=== PATIENT | female | born 1975 | race Caucasian/White ===

== ENCOUNTER 2021-05-16 18:19 | Inpatient (IN) | payer OTHER ==
[~2021-05-16] VITALS: Ht 165.1 cm; Wt 76.3 kg
--- NOTE | ~2021-05-16 | PROC ---
[address] [address] PROCEDURE REPORT Name: ERASMO MENDIOLA Room: [address] IN ..#: [id number] Admission: 05/16/21 Attend Phys: Ernesto Adames MD Discharge: Date of : 71 Report #: [id number] THIS REPORT FOR: cc: FAM - No family physician/PCP FAM - No family physician/PCP [facility],Medical Records Staff ~ For GI report, please see the Provation report in Perceptive 7 content. By: 0656Medical Records Staff TATI /DILCIA
--- NOTE | ~2021-05-16 | CON ---
[address] [address] CONSULTATION Name: ERASMO MENDIOLA Room: [address] IN .R.#: [id number] Admission: 05/16/21 Attend Phys: Ernesto Adames MD Discharge: Date of : 71 Report #: [id number] THIS REPORT FOR: cc: SUMAN - Bina family physician/PCP SUMAN - No family physician/PCP Mariella Foley MD ~ DATE OF CONSULTATION: 05/18/2021 REASON FOR CONSULT: Increased abdominal girth and abdominal distention. HISTORY OF PRESENT ILLNESS: This is a 45-year-old female who was admitted to hospital with increased abdominal distention and pain, which has been going on for the past week. The patient also had noticed that her eyes were turning yellow and urine turning dark. She admits that she has drunk alcohol for many, many years. She usually drinks vodka and water. She reports that she has not drunk for a week except one glass of vodka, last Wednesday. She denies any tremors, seizure or signs of withdrawal. The patient's affect is restricted, and she appears depressed. PAST MEDICAL HISTORY: Significant for alcoholism. The patient otherwise denies any major illness or chronic medical condition. ALLERGIES: No known drug allergy. MEDICATIONS: Please refer to MAR. PHYSICAL EXAMINATION: VITAL SIGNS: Reveals blood pressure of 113/71, respirations 18, pulse 104, temperature is 98.1. LUNGS: Clear. CARDIOVASCULAR: Regular. ABDOMEN: Distended, mildly tender to palpation. Bowel sounds are positive. NEUROLOGIC: The patient is alert and oriented x3. SKIN: There is jaundice. Conjunctivae are yellow. LABORATORY DATA: Reveal sodium of 129, potassium 3.8, BUN is 2, creatinine 0.6, glucose is 173, lipase is 200, AST 364, alkaline phosphatase is 249, ALT is 104. Magnesium is 2.8, total bilirubin 6.1 with calcium of 7.1. Ammonia is 17. Lactic acid is 3.5. WBC is 4.8 with hemoglobin of 9.8 and platelets of 67. IMAGING: CT of abdomen and pelvis was obtained. This is significant for upper abdominal ascites. The spleen is enlarged to 14 cm. Liver has mixed attenuation. The right colon and transverse colon shows slight [place] [address] CONSULTATION Name: ERASMO MENDIOLA Room: [address] IN [facility]#: [id number] Admission: 05/16/21 Attend Phys: Ernesto Adames MD Discharge: Date of : 71 Report #: [id number] ASSESSMENT AND PLAN: The patient with abdominal distention due to ascites, which is secondary to portal hypertension and alcoholic liver disease. I will schedule the patient for both therapeutic and diagnostic paracentesis. We will also consider EGD to rule out gastroesophageal varices. In reference to thickened colon per CT, this most probably is due to edematous colon. I spoke to the patient and her for 45 minutes and educated them on alcoholic liver disease, diagnosis, prognosis and management. I will make further recommendation based on above results. By: [id number] Foley MD /nt
[2021-05-16 18:27] VITALS: BP 141/86
[2021-05-16 20:06] LABS: ABSOLUTE LYMPHOCYTES 0.5 thou/uL (0.8-5.3); ABSOLUTE MONOCYTES 0.6 thou/uL (0.0-1.2); ABSOLUTE NEUTROPHILS 5.5 thou/uL (1.6-8.1); BASOPHILS 0.5 %; EOSINOPHILS 0.2 %; HEMATOCRIT 30.6 % (37.0-47.0); HEMOGLOBIN 10.4 gm/dL (12.0-15.0); LYMPHOCYTES 7.8 %; MCHC 33.9 g/dL (28.0-37.0); MCV 103.1 fL (80.0-100.0); MONOCYTES 9.3 %; MPV 8.2 fl. (7.2-11.1); NUCLEATED RBCS 0 /100WBC; PLATELET COUNT* 74 thou/uL (150-400); POLYS 82.2 %; RBC 2.97 mil/uL (4.20-5.00); RDW-CV 15.3 % (10.5-14.5); WBC 6.6 thou/uL (4.0-11.0)
[2021-05-16 20:14] LABS: INR 1.7; PROTIME 17.2 Seconds (9.20-11.50)
[2021-05-16 20:49] LABS: URINE GLUCOSE-RANDOM TRACE (Negative); URINE KETONES TRACE (Negative)
[2021-05-16 20:54] LABS: URINE CLARITY CLOUDY; URINE COLOR ORANGE
[2021-05-16 20:55] LABS: URINE SPECIFIC GRAVITY 1.015 (1.005-1.030)
[2021-05-16 20:57] LABS: BACTERIA-REFLEX >30 Many /HPF (None Seen); CASTS None Seen /LPF (None Seen); CRYSTALS None Seen /LPF (None Seen); SQUAMOUS >10 Many /LPF (0-3); URINE RBC 0-2 Rare /HPF (0-2); URINE WBC-REFLEX 6-15 Few /HPF (0-5)
[2021-05-16 21:29] LABS: CALCIUM 8.3 mg/dL (8.5-10.1); CREATININE 0.7 mg/dL (0.6-1.3); MAGNESIUM 1.6 mg/dL (1.8-2.4); TOTAL PROTEIN 7.1 g/dL (6.4-8.2)
[2021-05-16 21:34] LABS: POTASSIUM 2.4 mmol/L (3.5-5.1)
[2021-05-17 03:02] VITALS: BP 110/68
[2021-05-17 08:00] VITALS: BP 106/61
[2021-05-17 09:28] LABS: ABSOLUTE LYMPHOCYTES 0.5 thou/uL (0.8-5.3); ABSOLUTE MONOCYTES 0.5 thou/uL (0.0-1.2); ABSOLUTE NEUTROPHILS 3.7 thou/uL (1.6-8.1); BASOPHILS 0.4 %; HEMATOCRIT 29.3 % (37.0-47.0); HEMOGLOBIN 9.8 gm/dL (12.0-15.0); LYMPHOCYTES 10.4 %; MCH 34.9 pg (26.0-34.0); MCHC 33.4 g/dL (28.0-37.0); MCV 104.5 fL (80.0-100.0); MONOCYTES 10.4 %; MPV 8.4 fl. (7.2-11.1); NUCLEATED RBCS 0 /100WBC; PLATELET COUNT* 67 thou/uL (150-400); POLYS 77.8 %; RBC 2.81 mil/uL (4.20-5.00); RDW-CV 15.4 % (10.5-14.5); WBC 4.8 thou/uL (4.0-11.0)
[2021-05-17 09:49] LABS: CALCIUM 7.5 mg/dL (8.5-10.1); CREATININE 0.7 mg/dL (0.6-1.3)
[2021-05-17 09:50] LABS: INR 1.8; PROTIME 17.8 Seconds (9.20-11.50)
[2021-05-17 09:53] LABS: MAGNESIUM 2.8 mg/dL (1.8-2.4); PHOSPHORUS* 1.3 mg/dL (2.5-4.9)
[2021-05-17 09:57] LABS: POTASSIUM 2.8 mmol/L (3.5-5.1)
[2021-05-17 11:12] VITALS: BP 108/62
[2021-05-17 11:58] VITALS: BP 110/70
[2021-05-17 16:00] VITALS: BP 101/61
--- NOTE | 2021-05-17 19:01 | NUR ---
Pt admitted at noon from ED. VSS; receiving IVF and banana bag. Pt reports she drinks 5-6 drinks each day containing a shot of vodka, but states she is wanting to stop drinking. Up with assist, steady gait. Abd distension noted from ascites. Denies nausea or pain other than slight headache. CIWA=2. Getting scheduled lorazepam. Will continue to monitor.
[2021-05-17 20:10] VITALS: BP 114/69
[2021-05-18] VITALS: BP 122/72
[2021-05-18 04:47] VITALS: BP 113/71
--- NOTE | 2021-05-18 04:49 | NUR ---
PT A&O X 4. ON RA. CIWA 2. SCHEDULED ATIVAN GIVEN. NO C/O PAIN. IVF INFUISING. BED ALARM ON FOR SAFETY. CALL LIGHT WITHIN REACH. WILL CONTINUE TO MONITOR.
[2021-05-18 08:00] VITALS: BP 112/70
[2021-05-18 12:00] VITALS: BP 112/70
[2021-05-18 12:31] LABS: CALCIUM 7.1 mg/dL (8.5-10.1); CREATININE 0.6 mg/dL (0.6-1.3); POTASSIUM 3.8 mmol/L (3.5-5.1)
--- NOTE | 2021-05-18 13:13 | EKG ---
[place] [address] ELECTROCARDIOGRAM REPORT Name: MAURYERASMO Melaine Room: [address] [address] IN [facility]#: [id number] Admission: 05/16/21 Attend Phys: Ernesto Adames, Discharge: Date of : 71 Date of Service: 05/16/211953 Report #: [id number] THIS REPORT FOR: //name// [facility] ED Test Date: 2021-05-16 Test Time: 19:54:40 Pat Name: ERASMO MENDIOLA Department: Room: [facility] Gender: F Loom Starter: TB : 1975 Requested By: Rose Henderson Order Number: [id number] MD: Antonio Moser Measurements Intervals [place] Rate: 128 P: 49 MT: 127 QRS: 2 QRSD: 89 T: 22 QT: 345 QTc: 504 Interpretive Statements Sinus tachycardia Low voltage, precordial leads RSR' in V1 or V2, right VCD or RVH Prolonged QT interval No previous ECG available for comparison Electronically Signed On 05-18-2021 13:12:50 [employer] WORK[employer] by Antonio Moser [email or web address] <ELECTRONICALLY SIGNED> By: Antonio Moser MD, FACC 05/18/21 1312 53 53 Antonio Moser MD, FACC /EPI
[2021-05-18 16:15] VITALS: BP 113/68
[2021-05-18 20:15] VITALS: BP 119/75
[2021-05-19 01:00] VITALS: BP 111/71
[2021-05-19 04:30] VITALS: BP 99/60
[2021-05-19 05:46] LABS: HEMATOCRIT 28.1 % (37.0-47.0); HEMOGLOBIN 9.4 gm/dL (12.0-15.0); MCH 35.4 pg (26.0-34.0); MCHC 33.6 g/dL (28.0-37.0); MCV 105.5 fL (80.0-100.0); MPV 7.9 fl. (7.2-11.1); RBC 2.66 mil/uL (4.20-5.00); RDW-CV 16.2 % (10.5-14.5); WBC 5.4 thou/uL (4.0-11.0)
[2021-05-19 05:55] LABS: INR 1.9; PROTIME 19.3 Seconds (9.20-11.50)
[2021-05-19 05:57] LABS: ALBUMIN 2.3 g/dL (3.4-5.0); CALCIUM 6.9 mg/dL (8.5-10.1); CREATININE 0.9 mg/dL (0.6-1.3); MAGNESIUM 2.1 mg/dL (1.8-2.4); PHOSPHORUS* 0.9 mg/dL (2.5-4.9); POTASSIUM 3.3 mmol/L (3.5-5.1); TOTAL BILIRUBIN 6.1 mg/dL (<0.1-1.0); TOTAL PROTEIN 5.8 g/dL (6.4-8.2)
--- NOTE | 2021-05-19 06:59 | NUR ---
Oriented x 3 but drowsy. Vitals are stable. She is sinus tach. She is up stand by to the bathroom. CIWA is 0. She has ascites and has been NPO since midnight for abdominal ultrasound with probable paracentesis and EGD today. She has slept well.
[2021-05-19 08:30] VITALS: BP 106/63
[2021-05-19 16:57] VITALS: BP 107/68
--- NOTE | 2021-05-19 18:07 | NUR ---
CM ASSESSMENT ASSESSMENT COMPLETED WITH PT. PT ALERT AND ORIENTED. PT LIVES WITH IN HOME WITH STEPS. PT HAS NO DME USE, HH, ARU, OR SNF HX. PT IND WITH ADLS. PT SEEKING TO DC HOME WHEN MED CLEAR. PT STILL IN ALCOHOL W/D AND NOT CLEAR FOR DC. CM TO FOLLOW.
[2021-05-19 21:45] VITALS: BP 104/69
[2021-05-20] VITALS: BP 100/58
[2021-05-20 04:00] VITALS: BP 108/70
--- NOTE | 2021-05-20 05:51 | NUR ---
PT A&OX4, VSS ON ROOM AIR, UP TO BSC WITH ASSIST. IV SALINE LOCKED. SR/ST ON TELE MONITOR. NPO SINCE MIDNIGHT FOR PARANCENTESIS. PT SLEEPING WELL, WILL CONTINUE TO MONITOR.
[2021-05-20 06:17] LABS: HEMATOCRIT 31.5 % (37.0-47.0); HEMOGLOBIN 10.5 gm/dL (12.0-15.0); MCHC 33.1 g/dL (28.0-37.0); MCV 105.6 fL (80.0-100.0); MPV 7.6 fl. (7.2-11.1); RBC 2.99 mil/uL (4.20-5.00); RDW-CV 16.6 % (10.5-14.5); WBC 5.2 thou/uL (4.0-11.0)
[2021-05-20 07:07] LABS: ALBUMIN 2.2 g/dL (3.4-5.0); CALCIUM 7.1 mg/dL (8.5-10.1); CREATININE 0.7 mg/dL (0.6-1.3); MAGNESIUM 2.1 mg/dL (1.8-2.4); POTASSIUM 4.4 mmol/L (3.5-5.1); TOTAL BILIRUBIN 6.3 mg/dL (<0.1-1.0); TOTAL PROTEIN 5.9 g/dL (6.4-8.2)
[2021-05-20 08:00] VITALS: BP 104/59
[2021-05-20 10:57] LABS: INR 1.9; PROTIME 19.1 Seconds (9.20-11.50)
[2021-05-20 11:41] VITALS: BP 105/64
[2021-05-20 16:00] VITALS: BP 111/62
[2021-05-20 16:38] LABS: BF RBC <1000 /mm3; TOTAL CELL COUNT 56 /mm3
--- NOTE | 2021-05-20 17:03 | NUR ---
CM FOLLOWUP PT NOT MED CLEAR FOR DC AND PENDING EGD. UPON CLEARANCE, PT TO DC HOME. CM TO FOLLOW.
--- NOTE | 2021-05-20 18:10 | NUR ---
PT GOT UP THIS AM AND WAS VERY WEAK AND STUMBLING AROUND THE ROOM. WALKED WITH HER THE BATHROOM AND THEN BACK TO BED. VSS AFEBRILE. PT HAD 2000CC REMOVED FROM HER ABD TODAY AND ALBUMIN WAS GIVEN. WILL CONTINUE TO MONITOR PLAN OF CARE.
[2021-05-20 20:17] LABS: TOTAL VOLUME 3460 ml
[2021-05-20 20:18] LABS: CLARITY CLEAR
[2021-05-20 22:01] VITALS: BP 113/71
[2021-05-20 23:18] LABS: BF LYMPHOCYTES 60 %; BF MONOCYTES 18 %; BF POLYS 22 %; BF TISSUE 19 /100 WBC
[2021-05-20 23:19] LABS: SOURCE ASCITES
[2021-05-21] VITALS: BP 106/57
[2021-05-21 04:02] VITALS: BP 106/64
--- NOTE | 2021-05-21 05:02 | NUR ---
PT A&OX4, VSS ON ROOM AIR, ST/ST ON TELE MONITOR. IV SALINE LOCKED. MILD ANXIETY, ATIVAN ADMINISTERED ORDERED. NO CO PAIN OR DISCOMFORT. PT SLEEPING WELL, WILL CONTINUE TO MONITOR.
[2021-05-21 05:30] LABS: HEMATOCRIT 30.6 % (37.0-47.0); HEMOGLOBIN 10.2 gm/dL (12.0-15.0); MCH 35.3 pg (26.0-34.0); MCHC 33.3 g/dL (28.0-37.0); MPV 7.2 fl. (7.2-11.1); RBC 2.88 mil/uL (4.20-5.00); RDW-CV 17.5 % (10.5-14.5)
[2021-05-21 05:45] LABS: ALBUMIN 2.3 g/dL (3.4-5.0); CALCIUM 7.2 mg/dL (8.5-10.1); CREATININE 0.5 mg/dL (0.6-1.3); POTASSIUM 4.2 mmol/L (3.5-5.1); TOTAL PROTEIN 5.7 g/dL (6.4-8.2)
[2021-05-21 08:00] VITALS: BP 108/71
[2021-05-21 12:00] VITALS: BP 107/65
[2021-05-21 16:00] VITALS: BP 112/69
--- NOTE | 2021-05-21 16:24 | NUR ---
CM FOLLOWUP PT NOT YET MED CLEAR AND PENDING FOR GI. CM TO FOLLOW FOR DC PLANNING NEEDS.
[2021-05-21 19:44] VITALS: BP 117/74
[2021-05-22 00:40] LABS: AMP/METHAMP Negative (Negative); BARBITURATES Negative (Negative); BENZODIAZEPINES Negative (Negative); COCAINE Negative (Negative); METHADONE Negative (Negative); OPIATES Negative (Negative); PCP Negative (Negative); THC Negative (Negative)
[2021-05-22 02:18] VITALS: BP 103/53
[2021-05-22 04:17] LABS: HEMATOCRIT 31.5 % (37.0-47.0); HEMOGLOBIN 10.5 gm/dL (12.0-15.0); MCH 35.4 pg (26.0-34.0); MCHC 33.2 g/dL (28.0-37.0); MCV 106.4 fL (80.0-100.0); MPV 7.7 fl. (7.2-11.1); RBC 2.96 mil/uL (4.20-5.00); RDW-CV 17.1 % (10.5-14.5); WBC 5.9 thou/uL (4.0-11.0)
[2021-05-22 04:40] LABS: ALBUMIN 2.3 g/dL (3.4-5.0); CALCIUM 7.5 mg/dL (8.5-10.1); CREATININE 0.6 mg/dL (0.6-1.3); MAGNESIUM 1.9 mg/dL (1.8-2.4); PHOSPHORUS* 2.1 mg/dL (2.5-4.9); POTASSIUM 3.8 mmol/L (3.5-5.1); TOTAL BILIRUBIN 5.9 mg/dL (<0.1-1.0); TOTAL PROTEIN 5.9 g/dL (6.4-8.2)
--- NOTE | 2021-05-22 04:51 | NUR ---
PT A&OX4, VSS ON ROOM AIR. SR/ST ON TELE MONITOR. UP WITH SBA TO [facility]. NO CO PAIN OR DISCOMFORT. IV SALINE LOCKED. PT SLEEPING WELL, WILL CONTINUE TO MONITOR.
[2021-05-22 06:19] LABS: PROTIME 20.2 Seconds (9.20-11.50)
[2021-05-22 06:26] VITALS: BP 110/62
[2021-05-22 08:00] VITALS: BP 110/67
--- NOTE | 2021-05-22 13:13 | NUR ---
pt is not medically cleared for d/c; hyponatremia, detox withdrawl.
[2021-05-22 14:55] VITALS: BP 117/69
[2021-05-22 17:02] VITALS: BP 110/71
[2021-05-22 21:21] VITALS: BP 113/68
[2021-05-23] VITALS: BP 109/67
[2021-05-23 04:00] VITALS: BP 109/67; BP 114/67
[2021-05-23 04:33] LABS: HEMATOCRIT 27.9 % (37.0-47.0); HEMOGLOBIN 9.4 gm/dL (12.0-15.0); MCH 35.7 pg (26.0-34.0); MCHC 33.8 g/dL (28.0-37.0); MCV 105.8 fL (80.0-100.0); MPV 7.9 fl. (7.2-11.1); RBC 2.63 mil/uL (4.20-5.00); RDW-CV 16.8 % (10.5-14.5); WBC 4.5 thou/uL (4.0-11.0)
--- NOTE | 2021-05-23 05:26 | NUR ---
PATIENT ALERT TO CONVERSATION BUT LETHARGIC, ORIENTED X 4 WITH SOME FORGETFULNESS. TURNING SELF IN BED. MEDICATED X 2 FOR PAIN TO GOOD EFFECT. STRESS INCONTINENCE BRIEF ON. FALL PRECAUTIONS IN PLACE. VITAL SIGNS STABLE WITH SR TO ST ON THE MONITOR. AM LAB PENDING. SPOKE TO BY PHONE LATE EVENING WITH UPDATES GIVEN. CONTINUE TO MONITOR.
[2021-05-23 07:43] LABS: CALCIUM 7.6 mg/dL (8.5-10.1); CREATININE 0.6 mg/dL (0.6-1.3); POTASSIUM 4.8 mmol/L (3.5-5.1); TOTAL PROTEIN 5.4 g/dL (6.4-8.2)
[2021-05-23 08:00] VITALS: BP 104/60
[2021-05-23] MEDS ORDERED: PROTONIX40 M2 PO (11:59)
[2021-05-23] MEDS ORDERED: LASIX 40 MG TAB40 M2 PO (11:59)
[2021-05-23] MEDS ORDERED: SPIRONOLACTONE25 MG PO (11:59)
[2021-05-23] MEDS ORDERED: FOLIC ACID1 MG PO (11:59)
[2021-05-23] MEDS ORDERED: VITAMIN B-1100 M1 PO (11:59)
--- NOTE | 2021-05-23 12:55 | NUR ---
CM PROVIDED PT WITH ETOH RESOURCES, [facility] CARD, CLINIC RESOURCES AND MEDICATION ASSISTANCE RESOURCES.
[2021-05-23 14:33] LABS: % SATURATION 36 % (20-39); IRON 30 ug/dL (50-175)
[2021-05-23] MEDS ORDERED: MEDROL4 MG PO (15:04)
[2021-05-23 16:03] VITALS: BP 104/60
--- NOTE | 2021-05-23 18:27 | NUR ---
DISCHARGE ORDERS RECEIVED. DISCHARGE INSTRUCTIONS, CARE NOTES, E SCRIPTS AND FOLLOW UP APPTS GIVEN TO PT AND PT . BOTH COMMUNICATE UNDERSTANDING OF DISCHARGE TEACHING. MIDLINE REMOVED WITHOUT DIFFICULTIES AND TRANSPARENT DRESSING PLACED. QUALITY MANAGER REMOVED. PT DISCHARGED WITH ALL BELONGINGS AND PAPERWORK VIA WHEELCHAIR WITH NURSING STAFF TO SPOUSE OWN PERSONAL VEHICLE.
[2021-05-24 23:06] LABS: IgG 1608 mg/dL (586-1602); IgM 225 mg/dL (26-217)
== END 2021-05-23 18:28 | disposition home or self-care (01) | DRG 441 ==
LOC: M.ERS 18:19 → M.TBA-ER 23:02 → M.2W 05-17 11:50
PROVIDERS: Emergency Medicine; Internal Medicine; Internal Medicine Gastroenterology; Nurse Practitioner Adult Health; ADMIT Internal Medicine; ATTEND Internal Medicine
PROC: 0DJ08ZZ Inspection of Upper Intestinal Tract, Via Natural or Artificial Opening Endoscopic (ICD-10-PCS; principal; 2021-05-19)
PROC: 05HC33Z Insertion of Infusion Device into Left Basilic Vein, Percutaneous Approach (ICD-10-PCS; principal; 2021-05-19)
PROC: 0W9G3ZZ Drainage of Peritoneal Cavity, Percutaneous Approach (ICD-10-PCS; 2021-05-20)
PROC: 0W9G3ZZ Drainage of Peritoneal Cavity, Percutaneous Approach (ICD-10-PCS; 2021-05-23)
DX: K72.00 Acute and subacute hepatic failure without coma (principal); E43 Unspecified severe protein-calorie malnutrition; D68.59 Other primary thrombophilia; R18.8 Other ascites; I85.00 Esophageal varices without bleeding; K76.6 Portal hypertension; E87.1 Hypo-osmolality and hyponatremia; F10.139 Alcohol abuse with withdrawal, unspecified; K70.9 Alcoholic liver disease, unspecified; E87.6 Hypokalemia; R16.0 Hepatomegaly, not elsewhere classified; K44.9 Diaphragmatic hernia without obstruction or gangrene; K31.9 Disease of stomach and duodenum, unspecified; K31.89 Other diseases of stomach and duodenum; K74.60 Unspecified cirrhosis of liver; K72.10 Chronic hepatic failure without coma; Z20.822 Contact with and (suspected) exposure to COVID-19; Z68.28 Body mass index [BMI] 28.0-28.9, adult